=== PATIENT | female | born 2000 ===

== ENCOUNTER 2018-07-29 19:07 | Outpatient (CLI) | payer SELFPAY ==
[~2018-07-29] VITALS: Ht 170.2 cm; Wt 113.6 kg
[2018-07-29] MEDS ORDERED: SIMETHICONE 80 MG CHEW TAB ONE (19:44)
[2018-07-29] MEDS ORDERED: SIMETHICONE 125 MG CHEW TAB PO PRN ×2 (20:00)
[2018-07-29] MEDS ORDERED: PLEASE ENTER HEIGHT AND WEIGHT MC SCH (20:04)
[2018-07-29 20:21] VITALS: BP 125/66
== END 2018-07-29 20:06 | disposition home or self-care (01) ==
LOC: LDOP 19:07
PROVIDERS: ATTEND Obstetrics & Gynecology
DX: O26.892 Other specified pregnancy related conditions, second trimester (principal); R10.10 Upper abdominal pain, unspecified; Z90.89 Acquired absence of other organs; Z3A.21 21 weeks gestation of pregnancy; Z88.8 Allergy status to other drugs, medicaments and biological substances
CPT/HCPCS: 59025; 99201; G0463